=== PATIENT | female | born 1965 | race Two or more races ===

== ENCOUNTER 2020-04-23 07:59 | Day surgery (SDC) | payer OTHER ==
[2020-04-23] VITALS (8 sets, daily range): BP systolic 120–137; BP diastolic 71–83
[~2020-04-23] VITALS: Ht 167.6 cm; Wt 80.7 kg
--- NOTE | 2020-04-23 07:19 | Anethesia Preoperative Eval ---
Anesthesia Pre-op PMH/ROS General Date of Evaluation: Apr 23, 2020 Time of Evaluation: 07:17 Anesthesiologist: nina ASA Score: ASA 3 Mallampati Score Class I : Soft palate, uvula, fauces, pillars visible Class II: Soft palate, uvula, fauces visible Class III: Soft palate, base of uvula visible Class IV: Only hard plate visible Mallampati Classification: Class II Surgeon: abiodun Diagnosis: abdominal pain, gerd Surgical Procedure: egd Anesthesia History: none Social History: smoking - nonsmoker Family History: no anesthesia problems Allergies: Coded Allergies: No Known Allergies (Unverified , 04/23/20) Medications: see eMAR Patient NPO?: Yes Past Medical History Cardiovascular: Reports: HTN Gastrointestinal/Genitourinary: Reports: GERD, other - bcp lmp 03/28/2020 Neurologic/Psychiatric: Reports: depression/anxiety Endocrine: Reports: DM HEENT: Reports: other - tinnitus, decreased visual acuity Musculoskeletal/Integumentary: Reports: other - back pain, lesb x 3, right knee surgery Anesthesia Pre-op Phys. Exam Physician Exam Last Vital Signs Date Time Temp Pulse Resp B/P (MAP) Pulse Ox O2 Delivery O2 Flow Rate FiO2 04/23/20 08:22 97.0 83 18 136/71 99 Room Air Constitutional: NAD Neurologic: CN 2-12 intact Cardiovascular: RRR Respiratory: CTA Gastrointestinal: S/NT/ND Airway Exam Mallampati Score: Class II MO: limited Neck: flexible TMD: 2fb ROM: limited Teeth: intact Anesthesia Pre-op A/P Labs Microbiology Date/Time Source Procedure Growth Status 04/22/20 10:22 Nasopharynx SARS-CoV-2 RdRp Gene Assay - Final Complete Serum Test Labs Test 04/23/20 08:20 04/23/20 08:23 Human Chorionic Gonadotropin, Qual Negative (NEGATIVE) Risk Assessment & Plan Assessment: asa3 Plan: mac Status Change Before Surgery: No Pre-Antibiotics Drug: Elenita Blake MD Apr 23, 2020 07:19
[~2020-04-23 07:59] MED LIST: Atropine Inj 1mg/10ml Syr IVP PRN; BISACODYL5 MG ORAL; DROSPIRENONE-E1 EACH PO; DiphenhydrAMINE 50mg/ml Inj IVP PRN; GLIPIZIDE5 MG ORAL; IBUPROFEN600 M1 ORAL; LEVSIN-SL0.125 MG SL; LOSARTAN POTASS50 MG ORAL; LR 1000ml 1,000 ML IVLG SCH; Labetalol 5mg/ml 20ml vial IV PRN; Midazolam 2mg/2ml Inj IVP PRN; PRILOSEC OTC20 MG ORAL; TRIAD TP; [UNRECOGNIZED DRUG - OTHER] PO; fentaNYL 100 mcg/2 mL IV PRN
[2020-04-23] MEDS ORDERED: Lidocaine 1% MPF 10mg/ml 5ml ONE (08:30)
[2020-04-23] MEDS ORDERED: LR 1000ml ONE (08:30)
--- NOTE | 2020-04-23 08:37 | Short Stay Surgery H&P ---
History of Present Illness History of Present Illness Chief Complaint Abdominal pains/GERDs. HPI Delilah Jacinto is a 54 year old female who was admitted on for Adominal Pain, Gerds Patient History Allergies: Coded Allergies: No Known Allergies (Unverified , 04/23/20) PAST MEDICAL HISTORY: (1) Anemia (2) IBS (irritable bowel syndrome) (3) Hypertension (4) Diabetes (5) History of knee surgery Medication History Scheduled Bisacodyl* (Dulcolax*), 5 MG ORAL DAILY, (Reported) Ethinyl Estradiol/Drospirenone (Drospirenone-Eth Estradiol Tab), 1 EACH PO DAILY, (Reported) Glipizide* (Glipizide*), 5 MG ORAL BIDAC, (Reported) Hydrophilic Cream (Triad), 170 GM TP DAILY, (Reported) Hyoscyamine Sulfate* (Levsin-Sl*), 0.125 MG SL FOUR TIMES A DAY, (Reported) Ibuprofen* (Motrin*), 400 MG ORAL FOUR TIMES A DAY, (Reported) Losartan Potassium* (Losartan Potassium*), 50 MG ORAL DAILY, (Reported) Omeprazole Magnesium (Prilosec Otc), 20 MG ORAL DAILY, (Reported) [al hydrox], 20 MG PO DAILY, (Reported) Review of Systems Cardiovascular: Reports: hypertension Respiratory: Reports: no symptoms Skeletal: Reports: trauma Genitourinary: Reports: no symptoms Neurologic: Reports: no symptoms Endocrine: Reports: diabetes - type 2 Hematologic: Reports: anemia Physical Exam Vital Signs Last Vital Signs Date Time Temp Pulse Resp B/P (MAP) Pulse Ox O2 Delivery O2 Flow Rate FiO2 04/23/20 08:22 97.0 83 18 136/71 99 Room Air Labs Laboratory Tests Test 04/23/20 08:20 04/23/20 08:23 Human Chorionic Gonadotropin, Qual Pending POC Whole Blood Glucose Pending Skin: normal HENT: normal Heart: normal Lungs: normal Abdomen: abnormal Extremities: normal Genitourinary: normal Plan Plan of Care Upper GI.endoscopy with biopsy. Preop Interventions None. Summary of Findings See the reports. Attestation Are the patient's medical conditions optimized for surgery? Attestation Response: yes Long Mai MD Apr 23, 2020 08:37
--- NOTE | 2020-04-23 08:38 | Pre-Procedure Note/Attestation ---
Pre-Procedure Note/Attestation Complete Prior to Procedure Planned Procedure: left Procedure Narrative: Examination of the upper GI. tract via endoscopy and obtaining biopsy Indications for Procedure Pre-Operative Diagnosis: R/O Peptic ulcer/gastritis/esophagitis. Attestation I attest that I discussed the nature of the procedure; its benefits; risks and complications; and alternatives (and the risks and benefits of such alternatives), prior to the procedure, with the patient (or the patient's legal logistics service representative). I attest that, if there was a reasonable possibility of needing a blood transfusion, the patient (or the patient's legal logistics service representative) was given the [facility] standardized written summary, pursuant to the Jesus Frank Blood Safety Act ([place] Health and Safety Code # 1645, as amended). I attest that I re-evaluated the patient just prior to the surgery and that there has been no change in the patient's H&P, except as documented below: Long Mai MD Apr 23, 2020 08:38
--- NOTE | 2020-04-23 08:40 | Discharge Instructions ---
Discharge Instructions Discharge Instructions Follow up with: Make appointment to see the doctor in office after 2 weeks. For Congestive Heart Failure Reminder Report to your physician any weight gain of 5 pounds or more in one week. Long Mai MD Apr 23, 2020 08:40
--- NOTE | 2020-04-23 08:50 | Endoscopy Procedure Note ---
Endoscopy Procedure Note General Indication for Procedure: Abdominal pains/GERDS Procedures Performed: EGD - Mild gastritis, biopsy taken per random from gastric body. Specimen: yes Pt Tolerated Procedure Well: Yes Estimated Blood Loss: none Anesthesia Anesthesiologist: Dr. Pérez Anesthesia: moderate sedation Medications Medication Given: see anesthesia record Inserted Devices Implant(s) used?: No Quality Quality of Bowel Preparation: Excellent Was there any complications?: No GI Core Measures 50 yrs or older w/o bx or poly: Not Applicable 10yrs. F/U recommended: Not Applicable If not recommended, why?: Med reason:<3 yrs.: System Reason:<3 yrs.: Long Mai MD Apr 23, 2020 08:50
--- NOTE | 2020-04-23 09:52 | Immediate Post-Op Evaluation ---
Immediate Post-Op Evalulation Immediate Post-Op Evalulation Procedure: egd w/bx Date of Evaluation: Apr 23, 2020 Time of Evaluation: 09:21 IV Fluids: 250ml lr Blood Products: none Estimated Blood Loss: negligible Blood Pressure Systolic: 132 Blood Pressure Diastolic: 81 Pulse Rate: 65 Respiratory Rate: 18 O2 Sat by Pulse Oximetry: 100 Temperature (Fahrenheit): 97.2 Pain Score (1-10): 0 Nausea: No Vomiting: No Complications none Patient Status: awake, reacts, patent Hydration Status: adequate Drug: Elenita Blake MD Apr 23, 2020 09:52
--- NOTE | 2020-04-23 09:54 | 48 Hour Post Anesthesia Eval ---
Post Anesthesia Evaluation Procedure: egd w/bx Date of Evaluation: Apr 23, 2020 Time of Evaluation: 09:23 Blood Pressure Systolic: 133 0: 83 Pulse Rate: 66 Respiratory Rate: 18 Temperature (Fahrenheit): 97.2 O2 Sat by Pulse Oximetry: 100 Airway: patent Nausea: No Vomiting: No Pain Intensity: 0 Hydration Status: adequate Cardiopulmonary Status: stable Mental Status/LOC: patient returned to baseline Post-Anesthesia Complications: none Follow-up care needed: N/A Elenita Pérez MD Apr 23, 2020 09:54
--- NOTE | 2020-04-23 10:00 | Pre-op HX & Phy Repo 2 SIG ---
DATE OF ADMISSION: 04/23/2020 HISTORY OF PRESENT ILLNESS: The patient is a 54-year-old [id number] female who is being seen at this time prior to undergoing the procedure of upper GI endoscopy for which she has been scheduled to receive. This patient was seen approximately three weeks ago in my office for the problem of gastrointestinal condition that she has suffered subsequent to her work injury and life aftermath due to taking multiple medications. She was basically examined by Dr. Reji Jones, bottom brusher who suggested the patient should undergo procedures of upper and lower GI endoscopic as well however the upper GI endoscopy was approved by the insurance carrier at this point of time. The patient basically is complaining of multiple gastrointestinal condition including experiencing abdominal pains all over the abdomen and particularly over the epigastric area. The pains are intermittent in nature and is moderate in intensity as she says. She reports that approximately a year or couple years ago she started to experience these symptoms after being prescribed medications such as ibuprofen and other nonsteroidal anti-inflammatory agents along with analgesics. She started to take this medication almost going back for four years ago until present time. She also does suffer from gastroesophageal acid reflux symptoms that she takes omeprazole 20 mg, which is somewhat helpful for the acid reflux. However, as I mentioned, she does have intermittent epigastric pain and occasionally has nausea periodically. However, she denies having any difficulty with swallowing at this time. She reported to me that she cannot tolerate regular milk either. She also reports that she does have intermittent constipation for which she has been taking fiber. There is no history of rectal bleeding or passing bright red blood per rectum and she denies having vomited bright red blood either. Her medical history, she has been treated for Helicobacter pylori infection under the care of a physician by name of Dr. Cody but I am not sure if further examination was done to make sure that this infection was adequately treated or not. Again the patient denies having had any history of gastrointestinal conditions before being injured at job site. She reported that she never received any upper GI endoscopic examination; however, approximately 6 to 8 months ago she has had colonoscopic examination. We do not have the results at this point. 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 As such, she had the injuries over her lower back in the left knee, which required surgery as well and she also received injections in the involved area in the dorsal lumbar section. PAST MEDICAL HISTORY: The patient has had history of hypertension and diabetes. Otherwise, basically she denies having any other medical conditions. PAST SURGICAL HISTORY: She has had right knee surgery after the work accident. ALLERGIES: None. FAMILY HISTORY: Nonsignificant; however, diabetes runs in the family. HABITS: She does not smoke and does not drink alcohol. REVIEW OF SYSTEMS: Basically history of present illness. PHYSICAL EXAMINATION: GENERAL: Reveals alert, well-oriented female, does not seem to be in any acute distress. She looks well developed and nourished and she looks overweight and obese. VITAL SIGNS: Temperature 97.0, pulse rate 83, respirations 18, blood pressure 136/71, oxygen saturation 99% on room air. HEENT: Normocephalic. Pupils are equal in size and reactive to light and accommodation. No visible jaundice. Buccal cavity, tongue midline, well hydrated. No ulcers. NECK: Supple. No JVD, thyromegaly, or adenopathy. CHEST: Clear to auscultation and percussion. No rales or rhonchi. HEART: S1 and S2 are normal. Regular rhythm. No gallops or murmur. ABDOMEN: Quite obese, but there is moderate tenderness on palpation over the different part of the abdomen particularly over the epigastric area. There is no organomegaly. No palpable mass noted. No rebound phenomenon. EXTREMITIES: Within normal limits. CENTRAL NERVOUS SYSTEM: Grossly normal. NEUROLOGIC: Normal. INITIAL PREOPERATIVE DIAGNOSES: 1. Epigastric pain, generalized abdominal pain of uncertain etiology, rule out gastroesophageal acid reflux aggravated by side effects of NSAID medications used for the treatment of bodily injury. 2. Generalized abdominal pain with constipation, mostly consistent with irritable bowel syndrome with constipation, IBS-C aggravated by anxiety and stress and side effects of medication use for the treatment of bodily injury. 3. Dysphagia, possibly secondary to gastroesophageal acid reflux. 4. Diabetes and hypertension and history of Helicobacter pylori infection. RECOMMENDATION: I do feel that at this point, the patient is stable to undergo the procedure of upper GI endoscopy for which she has been scheduled. She understands the risks and benefits and will sign the consent. Said Rahban, M.D. DR: Jean Claude JOB#: [id number] CC:
--- NOTE | 2020-04-23 10:30 | Operative Note - Dictated ---
DATE OF OPERATION: 04/23/2020 SURGEON: Long Mai MD. PROCEDURE: Esophagogastroduodenoscopy with biopsy. PREOPERATIVE DIAGNOSES: Abdominal pain, epigastric pain, and dysphagia, rule out NSAID-induced gastropathy, gastritis, duodenal ulcer. POSTOPERATIVE DIAGNOSIS: Mild generalized gastritis, otherwise normal upper GI endoscopy. Biopsy was taken per random from gastric body. MEDICATION USED: Per Dr. Nichols, anesthesiologist. INSTRUMENT: GIF Olympus upper GI video endoscope. DESCRIPTION OF PROCEDURE: The patient after arriving in the endoscopy unit, was told about risks and benefits of the procedure, which she accepted and signed informed consent. She was then put on the left lateral decubitus position. After adequate IV sedation, the scope was gently passed through the cricopharyngeal area, was lodged into the upper esophagus and was gradually advanced towards gastroesophageal junction. The entire length of the esophagus was normal. GE junction also looked completely normal without any evidence of Castillo's mucosa or hiatal hernia. At this time, the scope was advanced into the stomach and gastric cavity was distended with insufflation of air. The areas of the fundus and the body and antrum were examined gradually, which revealed evidence of mild inflammatory process with increasing erythema of the gastric folds, but there was no ulcers, tumors, or polyps, etc. A retroflexion maneuver was applied and the area of the gastroesophageal junction was examined in a closer fashion, which revealed normal findings. At this point, one random biopsy from gastric body obtained and subsequently scope was passed through normal looking antrum, was passed through the pylorus. First and second portion of duodenum were also examined and found to be completely normal. Finally, scope was pulled out and the procedure was terminated. The patient tolerated the procedure well and left the endoscopy room in a good condition. Long Mai M.D. DR: BARBIE JOB#: [id number] CC:
== END 2020-04-23 10:05 | disposition home or self-care (01) ==
LOC: GAS 07:59
DX: R10.13 Epigastric pain (principal); R13.10 Dysphagia, unspecified; I10 Essential (primary) hypertension; E11.9 Type 2 diabetes mellitus without complications; F32.9 Major depressive disorder, single episode, unspecified; F41.9 Anxiety disorder, unspecified; K59.09 Other constipation; E66.9 Obesity, unspecified; Z68.28 Body mass index [BMI] 28.0-28.9, adult; Z79.899 Other long term (current) drug therapy; K58.9 Irritable bowel syndrome, unspecified; K29.50 Unspecified chronic gastritis without bleeding; B96.81 Helicobacter pylori [H. pylori] as the cause of diseases classified elsewhere
CPT/HCPCS: 36415; 43239; 82962; 84703; 94003; J2704; J7120; U0002; 94150